=== PATIENT | male | born 1955 | race Caucasian/White ===

== ENCOUNTER 2019-11-11 18:48 | Emergency (ER) | payer BC ==
[2019-11-11] MEDS ORDERED: Azithromycin 500 mg/250 ml NS 500 MG/250 ML BAG IVPB ONE (19:11)
[2019-11-11] MEDS ORDERED: NS 0.9% 1000 ML** 1,000 ML IV.FLUID IV ONE (19:11)
[2019-11-11] MEDS ORDERED: cefTRIAXone(*) 1 GM in NS 0.9% 50 ML* 50 ML IVPB ONE (19:11)
--- NOTE | 2019-11-11 19:22 | ED ---
Throat Pain/Nasal Congestion - HPI Summary HPI Summary: Patient is a 64 y/o M presenting to [facility] for a chief complaint of nasal congestion for the last week. About one week ago, patient began to feel he had a sinus infection, allergies, or a cold. He saw his PCP on 11/09/19 who told him he did not appear to have a sinus infection and prescribed him amoxicillin, which the patient has not filled. Patient later began to have a hacking productive cough with white phlegm and sleep 2-3 hours a night. On 11/07/19 and 11/08/19, patient states he had fever and chills. Patient currently complains of nasal congestion, shortness of breath, fatigue, generalized weakness, and decreased appetite. He notes a headache that began on 11/10/19 and continued into 11/11/19. Patient denies chest pain, nausea, vomiting, abdominal pain, bilateral LE pain, or bilateral LE edema. Any aggravating or alleviating factors are denied. Patient denies tobacco use. PMHx is significant for anxiety , depression, and hypercholesterolemia. He denies a history of HTN or DM. Allergies noted. - History of Current Complaint Chief Complaint: EDUpperRespComplaint Time Seen by Provider: 11/11/19 19:01 Hx Obtained From: Patient Onset/Duration: Sudden Onset, Lasting Days, Still Present Severity: Moderate Cough: Productive Related History: Seasonal Allergies - Allergies/Home Medications Allergies/Adverse Reactions: Allergies Allergy/AdvReac Type Severity Reaction Status Date / Time No Known Allergies Allergy Verified 11/11/19 18:53 PMH/Surg Hx/FS Hx/Imm Hx Previously Healthy: Yes Endocrine/Hematology History: Denies: Hx Diabetes Cardiovascular History: Reports: Hx Hypercholesterolemia Denies: Hx Hypertension Sensory History: Denies: Hx Legally Blind, Hx Deafness Opthamlomology History: Denies: Hx Legally Blind EENT History: Denies: Hx Deafness Psychiatric History: Reports: Hx Anxiety, Hx Depression - Surgical History Surgical History: None Surgery Procedure, Year, and Place: None Infectious Disease History: No Infectious Disease History: Denies: Traveled Outside the [place] in Last 30 Days - Family History Known Family History: Negative: Cardiac Disease, Hypertension, Diabetes - Social History Occupation: Employed Full-time Lives: With Family Alcohol Use: None Hx Substance Use: No Substance Use Type: Reports: None Hx Tobacco Use: No Smoking Status (MU): Never Smoked Tobacco Review of Systems Positive: Fever - In vitals, 98.2 F, Chills, Fatigue, Other - Positive decreased appetite Positive: Other - Positive nasal congestion Negative: Chest Pain Positive: Shortness Of Breath, Cough - Productive with white phlegm Negative: Abdominal Pain, Vomiting, Nausea Negative: Myalgia - Bilateral LE, Edema - Bilateral LE Positive: Headache, Weakness - Generalized All Other Systems Reviewed And Are Negative: Yes Physical Exam - Summary Physical Exam Summary: Appearance: Well-appearing, Well-nourished, lying in bed comfortably. Non-toxic appearing male who is tachycardic and tachypneic, speaking in half sentences. Skin: Warm, dry, no obvious rash Eyes: sclera anicteric, no conjunctival pallor ENT: mucous membranes moist, pharynx appears normal Neck: Supple, nontender Respiratory: Clear to auscultation, no signs of respiratory distress Cardiovascular: Normal S1, S2. No murmurs. Normal distal pulses in tibial and radial bilaterally. Abdomen: Soft, nontender, normal active bowel sounds present Musculoskeletal: Normal, Strength/ROM Intact Neurological: A&Ox3, awake and alert, mentation is normal, speech is fluent and appropriate Psychiatric: affect is normal, does not appear anxious or depressed Triage Information Reviewed: Yes Vital Signs On Initial Exam: Initial Vitals Temp Pulse Resp BP Pulse Ox 98.2 F 116 18 170/101 94 11/11/19 18:50 11/11/19 18:50 11/11/19 18:50 11/11/19 18:50 11/11/19 18:50 Vital Signs Reviewed: Yes Procedures - Sedation Patient Received Moderate/Deep Sedation with Procedure: No Diagnostics - Vital Signs Vital Signs Temp Pulse Resp BP Pulse Ox 11/11/19 18:50 98.2 F 116 18 170/101 94 - Laboratory Result Diagrams: 11/11/19 19:55 11/11/19 19:55 Lab Statement: Any lab studies that have been ordered have been reviewed, and results considered in the medical decision making process. - Radiology Chest X-ray Radiology Interpretation Completed By: ED Physician Summary of Radiographic Findings: Chest X-ray Impression: hazy opacity in the region of the right middle lobe. Reviewed and interpreted by Dr. Avila. Re-Evaluation - Re-Evaluation First Eval Re-Evaluation Time: 20:39 Change: Unchanged Comment: At 20:39, patient is reporting nausea. EENT Course/Dx - Course Course Of Treatment: Patient is a 64 y/o M presenting to [facility] for a chief complaint of nasal congestion for the last week. About one week ago, patient began to feel he had a sinus infection, allergies, or a cold. He saw his PCP on 11/09/19 who told him he did not appear to have a sinus infection and prescribed him amoxicillin, which the patient has not filled. Patient later began to have a hacking productive cough with white phlegm and sleep 2-3 hours a night. On 11/07/19 and 11/08/19, patient states he had fever and chills. Patient currently complains of nasal congestion, shortness of breath, fatigue, generalized weakness, and decreased appetite. He notes a headache that began on 11/10/19 and continued into 11/11/19. Patient denies chest pain, nausea, vomiting, abdominal pain, bilateral LE pain, or bilateral LE edema. Any aggravating or alleviating factors are denied. Patient denies tobacco use. PMHx is significant for anxiety, depression, and hypercholesterolemia. He denies a history of HTN or DM. On exam, non-toxic appearing male who is tachycardic and tachypneic, speaking in half sentences. In the ED course, patient was given IV fluids, azithromycin 500 mg IVPB, and Zofran 8 mg IV. At 20:39, patient is reporting nausea. Laboratory abnormal findings: Hgb 13.1, Hct 38, MPV 6.9, absolute monos 1.0, INR 1.16, sodium 126, chloride 94, carbon dioxide 21, glucose 112, calcium 8.2, AST 44, troponin I 0.03, CRP 135.51. Chest X-ray Impression: hazy opacity in the region of the right middle lobe. Patient will be discharged with a diagnosis of right lower lobe pneumonia. Follow up with PCP as needed. - Diagnoses Provider Diagnoses: Right middle lobe pneumonia Discharge ED - Sign-Out/Discharge Documenting (check all that apply): Patient Departure - Discharge - Discharge Plan Condition: Good Disposition: HOME Prescriptions: Azithromycin TAB* [Zithromax TAB (Z-ALBERT) 250 mg #6 tabs] 250 mg PO DAILY #4 tab Ondansetron ODT TAB* [Zofran 4 MG Odt TAB*] 8 mg PO Q6H PRN #14 tab.odt PRN Reason: Nausea Patient Education Materials: Bacterial Pneumonia (ED) Referrals: Travis Tello MD [Primary Care Provider] - Additional Instructions: Please fill the amoxicillin rx and take along with azithromycin. I have also prescribed zofran for nausea. It will likely take at least 3 days before you start to feel better on the antibiotics, and it may be several weeks before you feel back to normal. - Billing Disposition and Condition Condition: GOOD Disposition: Home - Attestation Statements Document Initiated by Yukiibe: Yes Documenting Scribe: Allison Garcia Provider For Whom Johnnie is Documenting (Include Credential): Charles Avila MD Scribe Attestation: Allison Garcia, yukiibed for Charles Avila MD on 11/12/19 at 0044. Scribe Documentation Reviewed: Yes Provider Attestation: The documentation as recorded by the Allison you accurately reflects the service I personally performed and the decisions made by me, Charles Avila MD Status of Scribe Document: Viewed
[2019-11-11 20:09] LABS: ABS Eosinophils 0.2 10^3/ul (0-0.6); ABS Neutrophils 5.1 10^3/ul (1.5-7.7); Eosinophil % 2.1 %; Hematocrit 38 % (42-52); Hemoglobin 13.1 g/dL (14.0-18.0); Lymphocyte % 14.3 %; Mean Corpuscular HGB Conc 35 g/dL (31-36); Mean Corpuscular Hemoglobin 30 pg (27-31); Mean Corpuscular Volume 86 fL (80-94); Mean Platelet Volume 6.9 fL (7.4-10.4); Nucleated Red Blood Cells % 0.1; Platelet Count 227 10^3/uL (150-450); Red Cell Distribution Width 13 % (10-15); White Blood Count 7.3 10^3/uL (3.5-10.8)
[2019-11-11 20:17] LABS: Activated Partial Thrombo Time 30.8 seconds (26.0-38.0); INR 1.16 (0.82-1.09)
[2019-11-11 20:27] LABS: ALT 50 U/L (7-52); AST 44 U/L (13-39); Albumin 3.8 g/dL (3.2-5.2); Albumin/Globulin Ratio 1.2 (1-3); Alkaline Phosphatase 77 U/L (34-104); Anion Gap 11 mmol/L (2-11); BUN/Creatinine Ratio 16.1 (8-20); Blood Urea Nitrogen 15 mg/dL (6-24); C Reactive Protein 135.51 mg/L (<8.01); CO2 Carbon Dioxide 21 mmol/L (22-32); Calcium 8.2 mg/dL (8.6-10.3); Chloride 94 mmol/L (101-111); EGFR Non-African American 81.8 (>60); Globulin 3.3 g/dL (2-4); Glucose 112 mg/dL (70-100); Potassium 3.6 mmol/L (3.5-5.0); Sodium 126 mmol/L (135-145); Total Protein 7.1 g/dL (6.4-8.9)
[2019-11-11] MEDS ORDERED: Ondansetron INJ* 2 MG/ML VIAL IV ONE (20:39)
[2019-11-11 20:44] LABS: Troponin I 0.03 ng/mL (<0.03)
[2019-11-11 21:01] VITALS: BP 153/83
== END 2019-11-11 20:55 | disposition home or self-care (01) ==
LOC: ED 18:48
DX: J18.1 Lobar pneumonia, unspecified organism (principal); E78.00 Pure hypercholesterolemia, unspecified; F41.9 Anxiety disorder, unspecified; F32.9 Major depressive disorder, single episode, unspecified
CPT/HCPCS: 36415; 71046; 80053; 83605; 84484; 85025; 85610; 85730; 86140; 87040; 96365; 96366; 96375; 99283; J0456; J0696; J2405

== ENCOUNTER 2019-11-25 14:40 | Emergency (ER) | payer BC ==
[2019-11-25] MEDS ORDERED: Albuterol/Ipratropium NEB.SOL* Albuterol 2.5 MG/Ipratropium 0.5 MG 3 ML INH ONE ×2 (15:27→17:20)
--- NOTE | 2019-11-25 15:31 | ED ---
Respiratory - HPI Summary HPI Summary: This patient is a 64 year old M presenting to [facility] with a chief complaint of sinus infection symptoms since 3 wks ago. Symptoms aggravated by nothing. Symptoms alleviated by various medications. Patient reports 3 wks ago started off with what he thought was a sinus infection but his pcp stated his symptoms do not point to sinus infection yet so pt was given abx. 2 wks ago visited ED where dx was PNA and was given Z-pack which helped until after he visited the PCP again and new sinus infection symptoms returned for past 4-5 days. Symptoms include post nasal with clear whitish sputum, productive cough, sore throat ( just today), and constriction in chest for which he tried Mucinex 12 hr, Sudafed , netipot (4x a day), albuterol inhaler( helped for a few hours with the constriction in his chest) which helped but did not cure all symptoms. Pt notes productive cough seems to be triggered by post nasal drip. Denies fever, general body aches (except for when he coughs), pain or swelling in legs. Denies hx diabetes, heart problems, smoking, asthma, copd. - History of Current Complaint Chief Complaint: EDUpperRespComplaint Stated Complaint: GENERAL ILLNESS PER PT Time Seen by Provider: 11/25/19 15:15 Hx Obtained From: Patient Onset/Duration: Lasting Weeks, Still Present Pain Intensity: 4 Character: Cough (Productive) Sputum Color: White Aggravating Factor(s): Nothing Alleviating Factor(s): OTC Medications Associated Signs and Symptoms: Nasal Congestion - Allergy/Home Medications Allergies/Adverse Reactions: Allergies Allergy/AdvReac Type Severity Reaction Status Date / Time No Known Allergies Allergy Verified 11/25/19 14:45 Home Medications: Home Medications Atorvastatin* [Lipitor*] 20 mg PO 1700 11/25/19 [History Confirmed 11/25/19] PMH/Surg Hx/FS Hx/Imm Hx Endocrine/Hematology History: Denies: Hx Diabetes Cardiovascular History: Reports: Hx Hypercholesterolemia Denies: Hx Hypertension Respiratory History: Reports: Other Respiratory Problems/Disorders - HX OF PNEUMONIA Sensory History: Denies: Hx Legally Blind, Hx Deafness Opthamlomology History: Denies: Hx Legally Blind Psychiatric History: Reports: Hx Anxiety, Hx Depression - Surgical History Surgery Procedure, Year, and Place: None Infectious Disease History: No Infectious Disease History: Denies: Traveled Outside the [place] in Last 30 Days - Family History Known Family History: Negative: Cardiac Disease, Hypertension, Diabetes - Social History Alcohol Use: None Hx Substance Use: No Substance Use Type: Reports: None Hx Tobacco Use: No Smoking Status (MU): Never Smoked Tobacco Review of Systems Positive: Other - denies general body aches . Negative: Fever Positive: Sore Throat, Other - post nasal with clear whitish sputum, and constriction in chest Positive: Cough Positive: Other - denies swelling or pain in legs All Other Systems Reviewed And Are Negative: Yes Physical Exam - Summary Physical Exam Summary: Constitutional: Well-developed, Well-nourished, Alert. (-) Distressed Skin: Warm, Dry HENT: Normocephalic; Atraumatic Eyes: Conjunctiva normal Neck: Musculoskeletal ROM normal neck. (-) JVD, (-) Stridor, (-) Tracheal deviation Cardio: Rhythm regular, rate normal, Heart sounds normal; Intact distal pulses; The pedal pulses are 2+ and symmetric. Radial pulses are 2+ and symmetric. (-) Murmur Pulmonary/Chest wall: (-) Respiratory distress, faint expiratory wheezes bilaterally, (-) Rales Abd: Soft, (-) tenderness, (-) Distension, (-) Guarding, (-) Rebound Musculoskeletal: (-) Edema Lymph: (-) Cervical adenopathy Neuro: Alert, Oriented x3 Psych: Mood and affect Normal Triage Information Reviewed: Yes Vital Signs On Initial Exam: Initial Vitals Temp Pulse Resp BP Pulse Ox 97.1 F 95 16 121/97 97 11/25/19 14:42 11/25/19 14:42 11/25/19 14:42 11/25/19 14:42 11/25/19 14:42 Vital Signs Reviewed: Yes Procedures - Sedation Patient Received Moderate/Deep Sedation with Procedure: No Diagnostics - Vital Signs Vital Signs Temp Pulse Resp BP Pulse Ox 11/25/19 14:42 97.1 F 95 16 121/97 97 - Laboratory Lab Statement: Any lab studies that have been ordered have been reviewed, and results considered in the medical decision making process. - Radiology Chest X-Ray Radiology Interpretation Completed By: Radiologist Summary of Radiographic Findings: Per radiologist,. MILD PERIHILAR INTERSTITIAL OPACIFICATION SUGGESTIVE OF PNEUMONITIS WITH IMPROVED AERATION. OF THE LEFT UPPER LUNG. ED physician has reviewed this imaging report. Re-Evaluation - Re-Evaluation First Eval Re-Evaluation Time: 18:00 Comment: Check in Disposition - Course Course Of Treatment: This patient is a 64 year old M presenting to [facility] with a chief complaint of sinus infection symptoms since 3 wks ago. Symptoms alleviated by various medications. Symptoms include post nasal with clear whitish sputum, productive cough, sore throat (just today), and constriction in chest for which he tried Mucinex 12 hr, Sudafed, netipot (4x a day), albuterol inhaler which helped but did not cure all symptoms. Pt notes productive cough seems to be triggered by post nasal drip. Denies fever, general body aches ( except for when he coughs), pain or swelling in legs. Physical Exam Findings reveal no abnormalities except for faint bilateral expiratory wheezing. In the ED course the patient was given Albuterol/Ipratropium 1 neb then 2 neb, Prednisone 60 mg, saline. CXR shows MILD PERIHILAR INTERSTITIAL OPACIFICATION SUGGESTIVE OF PNEUMONITIS WITH IMPROVED AERATION. OF THE LEFT UPPER LUNG. Patient will be discharged with prescription for prednisone and albuterol, with dx of bronchitis with bronchospasm, and follow up from pcp within 2-3 days. The patient is agreeable with this plan. - Diagnoses Provider Diagnoses: Bronchitis with bronchospasm Discharge ED - Sign-Out/Discharge Documenting (check all that apply): Patient Departure - discharge - Discharge Plan Condition: Stable Disposition: HOME Prescriptions: Albuterol HFA INHALER* [Ventolin HFA Inhaler*] 1 puff INH Q4H PRN #1 mdi PRN Reason: Wheezing predniSONE [Prednisone 20 MG TAB] 40 mg PO DAILY 4 Days #8 tablet Patient Education Materials: Acute Bronchitis (ED), Bronchospasm (ED) Referrals: Travis Tello MD [Primary Care Provider] - 2 Days Additional Instructions: Follow up with primary provider within 2-3 days. - Billing Disposition and Condition Condition: STABLE Disposition: Home - Attestation Statements Document Initiated by Scribe: Yes Documenting Scribe: Roxie Cloud Provider For Whom Johnnie is Documenting (Include Credential): Miranda Lemus Attestation: Roxie Garcia, christine for Dr. Narinder Cook D.O. on 11/26/19 at 1259. Scribe Documentation Reviewed: Yes Provider Attestation: The documentation as recorded by the scribe, Roxie Cloud accurately reflects the service I personally performed and the decisions made by me, Dr. Narinder Cook D.O. Status of Scribe Document: Viewed
[2019-11-25 16:04] LABS: Influenza A Molecular NEGATIVE (Negative); Influenza B Molecular NEGATIVE (Negative)
[2019-11-25] MEDS ORDERED: NS 0.9% 1000 ML** 1,000 ML IV ONE ×2 (17:56→18:48)
[2019-11-25 20:19] VITALS: BP 127/76
== END 2019-11-25 20:02 | disposition home or self-care (01) ==
LOC: ED 14:40
DX: J20.9 Acute bronchitis, unspecified (principal); R09.81 Nasal congestion; E78.00 Pure hypercholesterolemia, unspecified; F41.9 Anxiety disorder, unspecified; F32.9 Major depressive disorder, single episode, unspecified
CPT/HCPCS: 71046; 96360; 96361; 99282; A9270-GY; J7512

== ENCOUNTER 2024-05-20 17:22 | Inpatient (IN) ==
[2024-05-20] MEDS: Lactated Ringers 1000 ml BAG 1,000 ML IV ONE (17:47)
[2024-05-20 18:08] LABS: Hematocrit 37.4 % (38-53); Hemoglobin 12.9 g/dL (13.2-16.3); Mean Corpuscular Hemoglobin 30.5 pg (27-33); Mean Corpuscular Hgb Conc 34.5 g/dL (31-36); Mean Corpuscular Volume 88.2 fL (80-97); Mean Platelet Volume 6.7 fL (7.5-11.2); Platelet Count 202 10^3/uL (150-450); Red Blood Count 4.24 10^6/uL (4.06-5.63); Red Cell Distribution Width 12.5 % (12-17); White Blood Count 12.1 10^3/uL (3.6-10.2)
[2024-05-20 18:20] LABS: Activated Partial Thrombo Time 25.7 seconds (26.0-38.0); INR 1.11 (0.83-1.13)
[2024-05-20 18:57] LABS: Albumin 3.8 g/dL (3.2-5.2); Albumin/Globulin Ratio 1.4 (1-3); C Reactive Protein 77.99 mg/L (<8.01); Calcium 8.4 mg/dL (8.6-10.3); Creatinine, Serum 0.95 mg/dL (0.67-1.17); Globulin 2.7 g/dL (2-4); Potassium 3.4 mmol/L (3.5-5.0); Total Protein 6.5 g/dL (6.4-8.9); eGFR CKD-EPI 86.6 (>60)
[2024-05-20 19:20] LABS: High Sensitivity Troponin 1 Hr 45 pg/mL (<20)
[2024-05-20 19:31] LABS: ABS Lymphocytes 0.5 10^3/uL (1.0-4.8); ABS Monocytes 1.8 10^3/uL (0.0-1.1); ABS Neutrophils 9.8 10^3/uL (1.5-7.6); ABS Nucleated RBC 0.01 10^3/ul; Lymphocyte % 4.4 %; Nucleated Red Blood Cells % 0.1 %/100WBC (0.0-0.8)
[2024-05-20 19:51] LABS: Urine Appearance Clear; Urine Bilirubin Negative (Negative); Urine Blood 3+ (Negative); Urine Color Light-Yellow; Urine Glucose Negative (Negative); Urine Ketones Negative (Negative); Urine Nitrite Negative (Negative); Urine Protein Trace (Negative); Urine Specific Gravity 1.011 (1.002-1.030); Urine Urobilinogen Negative (Negative); Urine pH 6.5 (5.0-8.0)
[2024-05-20 20:27] LABS: Urine Bacteria 1+ /HPF (Absent); Urine Red Blood Cell 3+(>10/hpf) /HPF (0-Trace); Urine White Blood Cell 2+(11-20/hpf) /HPF (0-Trace)
[2024-05-20] MEDS: Iohexol 300 (CONTRAST) 10 ML SDV IV ONE (21:08)
[2024-05-20] MEDS: cefTRIAXone 1 gm/50 mL D5W 1 GM/50 ML BAG IV ONE (21:28)
[2024-05-21] MEDS: Ondansetron 4 mg VIAL 2 MG/ML 2 ml VIAL IV ONE (00:02)
[2024-05-21] MEDS: Azithromycin 500 mg/250 ml NS 500 MG/250 ML BAG IVPB ONE (01:03)
[2024-05-21] MEDS: Potassium Chlor 10 meq TAB PO ONE (02:59)
[2024-05-21] MEDS: Heparin 5000 UNITS/ML 1 mL VIAL SUBCUT SCH (05:39)
[2024-05-21 06:13] LABS: ABS Basophils 0.1 10^3/uL (0.0-0.1); ABS Lymphocytes 1.2 10^3/uL (1.0-4.8); ABS Monocytes 1.3 10^3/uL (0.0-1.1); ABS Neutrophils 10.5 10^3/uL (1.5-7.6); ABS Nucleated RBC 0.01 10^3/ul; Hemoglobin 13.3 g/dL (13.2-16.3); Lymphocyte % 9.3 %; Mean Corpuscular Hemoglobin 30.9 pg (27-33); Mean Corpuscular Hgb Conc 34.2 g/dL (31-36); Mean Corpuscular Volume 90.4 fL (80-97); Platelet Count 209 10^3/uL (150-450); Red Blood Count 4.31 10^6/uL (4.06-5.63); White Blood Count 13.1 10^3/uL (3.6-10.2)
[2024-05-21 06:51] LABS: Calcium 8.9 mg/dL (8.6-10.3); Creatinine, Serum 0.98 mg/dL (0.67-1.17); Potassium 4.1 mmol/L (3.5-5.0); eGFR CKD-EPI 83.5 (>60)
[2024-05-21 07:34] LABS: TSH Ultra Thyroid Stim Horm 3.84 mcIU/mL (0.34-5.60)
[2024-05-21] MEDS: Venlafaxine XR 75 mg PO SCH (07:59)
[2024-05-21] MEDS: CMCS: Alfuzosin ER 10 mg TAB.ER (NF) 10 MG TAB.ER PO SCH (10:18)
[2024-05-21] MEDS: NS 0.9% 1000 ml BAG 1,000 ML IV SCH (10:19)
[2024-05-21] MEDS: metroNIDAZOLE IV 500 MG/100ML 500 MG/100 ML BAG IVPB SCH (11:31)
[2024-05-21] MEDS: cefTRIAXone 1 gm/50 mL D5W 1 GM/50 ML BAG IV SCH (20:09)
[2024-05-22] MEDS: Azithromycin 500 mg/250 ml NS 500 MG/250 ML BAG IVPB SCH (00:46)
[2024-05-22] MEDS: NS 0.9% 1000 ml BAG 1,000 ML IV SCH (02:30)
[2024-05-22 07:02] LABS: ABS Lymphocytes 1.1 10^3/uL (1.0-4.8); ABS Monocytes 1.5 10^3/uL (0.0-1.1); ABS Neutrophils 6.8 10^3/uL (1.5-7.6); Eosinophil % 0.1 %; Hematocrit 31.9 % (38-53); Hemoglobin 11.1 g/dL (13.2-16.3); Lymphocyte % 11.8 %; Mean Corpuscular Hemoglobin 31.3 pg (27-33); Mean Corpuscular Volume 89.5 fL (80-97); Mean Platelet Volume 6.7 fL (7.5-11.2); Platelet Count 173 10^3/uL (150-450); Red Blood Count 3.56 10^6/uL (4.06-5.63); White Blood Count 9.5 10^3/uL (3.6-10.2)
[2024-05-22 07:21] LABS: Albumin/Globulin Ratio 1.3 (1-3); Calcium 7.9 mg/dL (8.6-10.3); Creatinine, Serum 0.86 mg/dL (0.67-1.17); Globulin 2.3 g/dL (2-4); Potassium 3.7 mmol/L (3.5-5.0); Total Bilirubin 0.5 mg/dL (0.2-1.0); Total Protein 5.3 g/dL (6.4-8.9); eGFR CKD-EPI 93.7 (>60)
[2024-05-22] MEDS: Ampicillin ADVAN 2 GM in NS 0.9% 100 ml BAG 100 ML IVPB SCH (14:31)
[2024-05-23 08:37] LABS: Hematocrit 36.1 % (38-53); Hemoglobin 12.5 g/dL (13.2-16.3); Mean Corpuscular Hemoglobin 30.9 pg (27-33); Mean Corpuscular Hgb Conc 34.5 g/dL (31-36); Mean Corpuscular Volume 89.5 fL (80-97); Mean Platelet Volume 6.9 fL (7.5-11.2); Platelet Count 209 10^3/uL (150-450); Red Blood Count 4.03 10^6/uL (4.06-5.63); White Blood Count 8.3 10^3/uL (3.6-10.2)
[2024-05-23 09:52] LABS: Calcium 8.4 mg/dL (8.6-10.3); Creatinine, Serum 0.79 mg/dL (0.67-1.17); Potassium 3.5 mmol/L (3.5-5.0); eGFR CKD-EPI 96.2 (>60)
[2024-05-23 10:12] VITALS: BP 133/85
[2024-05-24 20:16] LABS: Anaplasma phagocytophilum Negative (Negative); B. miyamotoi PCR, B Negative (Negative); Babesia divergens/MO-1 Negative (Negative); Babesia ducani Negative (Negative); Ehrlichia chaffeensis Negative (Negative); Ehrlichia ewingii/canis Negative (Negative); Ehrlichia muris eauclairensis Negative (Negative)
[2024-05-25 15:00] LABS: IgG Immunoblot Positive (Negative); IgM Immunoblot Negative (Negative)
== END 2024-05-23 12:45 | disposition home or self-care (01) | DRG 863 ==
LOC: ED 17:22 → SUATTDRO 05-21 02:29 → EDHOLD 05-21 02:29 → SSU 05-21 09:03
PROVIDERS: ADMIT Internal Medicine; ATTEND Internal Medicine